=== PATIENT | male | born 1940 | race Caucasian/White ===

== ENCOUNTER 2020-02-27 17:45 | Emergency (ER) | payer MEDICARE, OTHER ==
[~2020-02-27 17:45] MED LIST: ASPIRIN EC81 MG PO; CITALOPRAM HBR10 MG PO; CRESTOR40 MG PO; DULERA 200 MCG8.8 GM INH; ELIQUIS5 MG PO; FEXOFENADINE H180 MG PO; FLONASE 0.05% N16 GM; GLUCOPHAGE XR500 M1 PO; PLAVIX 75 MG TA75 MG PO; ULTRAM50 MG PO; VENTOLIN HFA 66.7 GM INH
== END 2020-02-27 21:05 | disposition home or self-care (01) ==
LOC: ER1 17:45
DX: L76.22 Postprocedural hemorrhage of skin and subcutaneous tissue following other procedure (principal); I10 Essential (primary) hypertension; F17.200 Nicotine dependence, unspecified, uncomplicated; I48.91 Unspecified atrial fibrillation; Z79.01 Long term (current) use of anticoagulants; Z85.828 Personal history of other malignant neoplasm of skin; Z98.890 Other specified postprocedural states; Y83.6 Removal of other organ (partial) (total) as the cause of abnormal reaction of the patient, or of later complication, without mention of misadventure at the time of the procedure
CPT/HCPCS: 99282